=== PATIENT | female | born 1960 | race Caucasian/White ===

== ENCOUNTER 2024-03-27 11:17 | Outpatient (CLI) | payer OTHER, SELFPAY ==
--- NOTE | ~2024-03-27 | XR_ITS ---
XR cervical spine 4-5V Ordering provider: Joana Becerril, JALIL History: . cervical radiculopathy . Comparison: None. FINDINGS: VERTEBRAL BODIES: Normal height and alignment. No visible fracture or subluxation. The dens is intact . Degenerative changes of the spine. DISK SPACES: Narrowing of the disc C5-C6. Narrowing of the joints between the C1 lateral masses and C2 bone. Intervertebral foramina are normal . Multilevel facet joint disease. Multilevel uncovertebral joint osteoarthritic changes. PARASPINOUS SOFT TISSUES: No prevertebral soft tissue swelling. IMPRESSION: No acute osseous abnormality cervical spine. Degenerative disc disease at the level of C5-C6. Multilevel facet joint disease on uncovertebral joint osteoarthritic changes. Reviewed, dictated and finalized at location A.
--- NOTE | ~2024-03-27 | XR_ITS ---
Right Hand Technique: PA, oblique, and lateral views were obtained. Clinical History: Thumb pain Findings: No acute fracture or dislocation is seen. Osseous alignment is anatomic. There is mild dege nerative change of the first CMC joint. There are mild degenerative changes of the interphalangeal lars ints of the fingers. Soft tissues are unremarkable. Impression: Mild degenerative changes, as above. Reviewed, dictated and finalized at location M. Impression: Mild degenerative changes, as above.
== END 2024-03-27 11:18 | disposition home or self-care (01) ==
PROVIDERS: PCP Physician Assistant; Visit Provider Physician Assistant
DX: M54.12 Radiculopathy, cervical region (principal); M50.322 Other cervical disc degeneration at C5-C6 level
CPT/HCPCS: 72050; 73130

== ENCOUNTER 2024-08-15 11:57 | Outpatient (CLI) | payer OTHER, SELFPAY ==
--- NOTE | ~2024-08-15 | XR_ITS ---
EXAMINATION: [id number] DATE: 08/15/2024 12:26 INDICATION: Left chest pain. Fracture of one rib, left side, initial encounter. TECHNIQUE: A frontal view of the chest and 2 views on 3 radiographs of the left ribs were obtained. COMPARISON: None. FINDINGS: There is no pneumonia, pleural effusion, or pneumothorax. The heart size is normal. There a re surgical clips in left axilla. IMPRESSION: 1. No rib fracture. Reviewed, dictated and finalized at location A. [employer] IMPRESSION: 1. No rib fracture.
== END 2024-08-15 11:58 | disposition home or self-care (01) ==
LOC: MICIMG 11:59
PROVIDERS: PCP Family Medicine; Visit Provider Family Medicine
DX: S22.32XA Fracture of one rib, left side, initial encounter for closed fracture (principal); X58.XXXA Exposure to other specified factors, initial encounter
CPT/HCPCS: 71101